=== PATIENT | female | born 2005 | race Asian ===

== ENCOUNTER 2025-04-23 13:56 | Emergency (ER) | payer SELFPAY ==
--- OUTSIDE RECORDS SUMMARY | 2025-04-17 23:59 | XMS_ITS | Continuity of Care Document ---
Author Organization [facility] Address [address] [place] [address]- Care Team Providers Care Probation Officer Name Role Phone Not on Staff, PCP Primary Care Physician Unavail able Encounter [facility] Date(s): 12/18/24 - 04/17/25 [facility] [address] [place] [address]- Attending Physician: Arnel Bush MD Encounter Type: Pre Office Visit Allergies, Adverse Reactions, Alerts Substance Criticality Severity Reaction Reaction Severity Status Lactose Active Immunizations Given and Recorded Vaccine Date Status Refusal Reason SARS-CoV-2 mRNA ([id number]) vax 12/10/21 Recorded SARS-CoV-2 mRNA ([id number]) vax 11/19/21 Recorded Medications No Known Medications Problem List No Known Problems Social History Social History Type Response Sex Sex Representation Female (finding) Patient Care team information Care Team Personnel Name: Not on Staff, PCP Position: S Physician (General Medicine) Member Role: PCP Care Team Related Persons Name: FORTUNATO MAYORGA Insurance Providers Guarantor name: NA Health Plan Information #: 1 Payer: SELF PAY Payer Identifier: NA Member Number: NA Group Number: NA Subscriber Identifier: NA Relationship to Subscriber: self Coverage Type: Self-pay (Includes applicants for insurance and Medicaid applicants) Coverage Verification Date: NA Telecom: NA Address: NA
[2025-04-23 14:04] VITALS: BP 112/68; PULSE 75; O2SAT 98
[2025-04-23 14:15] VITALS: PULSE 71; RESP 18; TEMP 36.4; O2SAT 100; BMI 26.1
--- NOTE | 2025-04-23 17:18 | ED.PSYCH ---
HPI - Psych General Chief Complaint: Psychiatric Symptoms Stated Complaint: SI with plan Time Seen by Provider: 04/23/25 15:56 Source: patient, EMS and RN notes reviewed Mode of arrival: ambulatory Limitations: no limitations History of Present Illness ED Provider: Dr. Sara Hodge HPI Narrative: 19-year-old female transitioning to male with no significant past medical history presenting with reported suicidal ideations made at school today. Apparently staff called EMS when the patient was agitated and ?energetic? after drinking several energy drinks today. He reports that he gets this way when he has a lot of caffeine. He adamantly denies feeling suicidal now. States that he had came out to his mother today that he was trans male and his mother did not take it very well. He is very tearful talking about this. Admits that he ?loves his mother very much and he wants her to accept him as he is . He denies feeling suicidal now. Admits that when he drinks a lot of caffeine he can become agitated but he never had any plan for suicide and has no intentions of self-harm now. Denies any illicit substance or alcohol use. Forward thinking regarding the future of working in student assistance in college. Has no physical complaints. Related Data Allergies Allergy/AdvReac Type Severity Reaction Status Date / Time No Known Allergies Allergy Verified 04/23/25 14:19 Review of Systems Review of Systems: as per HPI, full review of systems performed and negative but for the above mentioned pertinent positives and negatives. [facility] Social History Social History Advance Directives: No Advance Directives Information Provided: Yes Physical Exam Exam: Exam: GENERAL: Anxious, tearful. SKIN: Normal skin color for ethnicity, warm, dry, intact, no rashes noted. HEENT: Normocephalic, atraumatic, no stridor, posterior oropharynx nonerythematous, dentition intact, EOMI. NECK: Soft, supple, full ROM, midline structures nontender, no step-offs, no deformities, no lymphadenopathy. CHEST: Heart regular tachycardia, no murmurs, symmetric chest rise and fall, no crepitus. PULMONARY: Clear to auscultation bilaterally, no labored breathing, no wheezes/rhales/ rhonchi. ABDOMINAL: Soft, nondistended, nontender, positive bowel sounds in all quadrants. : Deferred. MUSCULOSKELETAL: Normal tone, full range of motion, no deformities, no peripheral edema. NEURO: Alert and oriented x3, CN II through XII intact, equal strength and sensation bilateral upper and lower extremities, no focal neurologic deficits. PSYCHIATRIC: Anxious affect, tearful, fluid speech, good eye contact and appropriate demeanor. Vital Signs: Vital Signs: Last Vital Signs Temp 97.5 F 04/23/25 19:37 Pulse 86 04/23/25 19:37 Resp 16 04/23/25 19:37 BP 129/78 04/23/25 19:37 Pulse Ox 100 04/23/25 19:37 O2 Del Method Room Air 04/23/25 19:37 BMI result Body Mass Index 26.1 Medical Decision Making Medical Decision Making MDM Narrative: Patient presents with psychologic complaints. Differential diagnosis includes suicidal ideations, homicidal ideations, depression, anxiety, mood disorder, decompensated mental illnesses such as schizophrenia or bipolar disorder, medication noncompliance, among many others. Patient is no longer feeling suicidal now that he is calm and has been waiting in the emergency department for a period of time. He was able to take a nap when he 1st arrived. Thinks that this helped. He is having difficult conversations with family regarding his sexuality and whatever statements he made at school, he does not feel suicidal now. Plan for care team consult, obtaining some collateral regarding safety and likely discharge to follow up as an outpatient. Patient evaluated by care team. Concern was for suicidal statements made at the therapist's office so crisis was involved. Patient is no longer feeling suicidal. Tawny for safety. Using shared decision making, plan for discharge home to follow-up with primary care and/or specialist. Patient understands and agrees with plan for discharge. Discharged home in stable condition. Differential Diagnosis Differential Diagnoses: The differential diagnosis associated with the presentation includes (as above) Admission/Observation Consideration of admission/observation: Escalation of care including admission/observation considered Consult Healthcare Provider Management of the patient was discussed with: Behavioral Health Provider Independent Historian Clinical information obtained from an independent historian. History obtained from or confirmed by: EMS Social Determinants Patient?s care significantly limited by Social Determinants of Health including: Unemployment and Other Social Determinant of Health Discharge Plan Discharge Clinical Impression: Acute anxiety Patient Disposition: Home, Self-Care Instructions: Anxiety (ED) Additional Instructions: You were seen in our Emergency Department today for treatment of a behavioral health issue. It is important after your visit that you follow up with either your behavioral health provider or a primary care doctor within 7 days.? If you have trouble finding a therapist you can reach out to [address] [phone] The National Suicide and Crisis Lifeline can be reached 7 days a week 24 hours a day.? Call 988 to speak with someone.? Return for any worsening symptoms or concerns such as thoughts of self harm or harm to others. Please call 911 if you feel your mental health is worsening.? Interventions: Hamlin-Suicide Risk Severity Scale Last Done: 04/23/25 15:12 ED Discharge Assessment Last Done: 04/23/25 19:37 Print Language: Afghan
--- NOTE | 2025-04-23 18:30 | PC.NURSE ---
care team met with patient, awaiting dispo at this time. continues to deny si/hi.
[2025-04-23 19:36] VITALS: BP 129/78; PULSE 86; RESP 16; TEMP 36.4; O2SAT 100
[2025-04-23 19:37] VITALS: BP 129/78; PULSE 86; RESP 16; TEMP 36.4; O2SAT 100
--- OUTSIDE RECORDS SUMMARY | 2025-04-23 20:07 | XMS_ITS | Clinical Summary ---
Author Organization [facility] Address [address] [address] Phone Care Team Providers Care Irrigator Overhead Name Role Phone Pcp, Unknown Primary Care Provider Unavailabl e Allergies No known active allergies Medications No known medications Active Problems No known active problems Social History Tobacco Use Types Packs/Day Years Used Date Smoking Tobacco: Never Assessed Education Answer Date Recorded Are you interested in more education? Not on mikaela e 11/07/2022 Are you concerned about learning? Not on file 11/07/2022 No 11/07/2022 No 11/07/2022 Digital Access Answer Date Recorded No 11/07/2022 No 11/07/2022 Reliable internet access at home? Not on file 11/07/2022 Device with a working camera? Not on file Comments Unknown Sex and Gender Information Value Date Recorded Sex Assigned at Not on file Legal Sex Female 9:53 AM EDT Gender Identity Not on file Sexual Orientation Not on file Last Filed Vital Signs Vital Sign Reading Time Taken Comments Blood Pressure 101/66 01/30/2024 11:44 AM EDT Pulse 60 01/30/2024 11:44 AM EDT Temperature - - Respiratory Rate 16 11/07/2022 10:0 9 AM EDT Oxygen Saturation 97% 04/24/2023 10: 15 AM EST Inhaled Oxygen Concentration - - Weight 70.7 kg (155 lb 14.4 oz) 024 11:44 AM EDT Height 144.8 cm (4' 9 ) 01/30/2024 11:4 4 AM EDT Body Mass Index 33.74 01/30/2024 11:44 AM EDT Plan of Treatment Health Maintenance Due Date Last Done Comments Adult Td,Tdap Booster 2003 MMR VACCINES (1 of 1 - Stand anish series) 11/25/2004 COMBINED DTaP,Tdap,Td (1 - Tdap) 11/25/2010 DEPRESSION SCREENING 2015 SMOKING Hx and SMOKELESS TOB ACCO SCREENING 11/25/2016 HPV VACCINES (1 - 3-dose series) 11/25/2018 CHLAMYDIA SCREENING 2019 MENINGOCOCCAL VACCINES (B) ( 1 of 2 - Standard) 2019 ADOLESCENT UNIVERSAL LIPID SCREENING 11/25/2020 HEPATITIS C SCREENING 11/25/2021 HIV ONE-TIME SCREENING (18-6 5 YEARS) 11/25/2021 PAP SMEAR 11/25/2024 INFLUENZA VACCINE (#1) 2025 COVID-19 VACCINE (2024-2 6 season) 2025 HEPATITIS A VACCINES Aged Out No long er eligible based on patient's age to complete this topic HIB VACCINES Aged Out No longer eligi ble based on patient's age to complete this topic IPV VACCINES Aged Out No longer eligi ble based on patient's age to complete this topic MENINGOCOCCAL VACCINES (ACWY) Aged Out No longer eligible based on patient's age to complete this topic PNEUMOCOCCAL VACCINES (0-49 years) Aged Out No longer eligible based on patient's age to complete this topic Medical Devices Not on file Insurance [facility] C3 ACO [facility] C3 ACO S C3 ACO [facility] C3 ACO [facility] C3 ACO [facility] P[facility] PHCS C3 ACO [facility] Care Teams Irrigator Overhead Relationship Specialty Start Date End Date Pcp, Unknown PCP - General 11/07/22 Additional Source Comments The information contained in this document represents components of the legal health record. It is not the complete legal health record.[facility]
== END 2025-04-23 19:56 | disposition home or self-care (01) ==
PROVIDERS: Emergency Provider Emergency Medicine
DX: F41.9 Anxiety disorder, unspecified (principal); R45.851 Suicidal ideations; Z63.8 Other specified problems related to primary support group
CPT/HCPCS: 99283; 99284; S9485